=== PATIENT | male | born 1980 | race Caucasian/White ===

== ENCOUNTER → 2017-09-07 | Outpatient (CLI) | payer OTHER ==
[~2017-09-07] VITALS: Ht 182.9 cm; Wt 127.0 kg
[~2017-09-07] MED LIST: NICOTROL INHALE10 MG IH; OMEPRAZOLE40 M1 PO; PRAVACHOL20 MG PO; VITAMIN D2000 UNI1 PO; VITAMIN D5000 UNI1 PO
== END | disposition home or self-care (01) ==
LOC: AMB 07:54
PROC: 0DJD8ZZ Inspection of Lower Intestinal Tract, Via Natural or Artificial Opening Endoscopic (ICD-10-PCS; principal; 2017-09-07)
DX: K92.1 Melena (principal); K64.8 Other hemorrhoids; E78.5 Hyperlipidemia, unspecified; E66.09 Other obesity due to excess calories; Z68.39 Body mass index [BMI] 39.0-39.9, adult; K21.9 Gastro-esophageal reflux disease without esophagitis; E55.9 Vitamin D deficiency, unspecified; F17.200 Nicotine dependence, unspecified, uncomplicated; Z82.49 Family history of ischemic heart disease and other diseases of the circulatory system
CPT/HCPCS: J2250